=== PATIENT | female | born 1945 ===

== ENCOUNTER 2019-04-08 07:30 | Inpatient (IN) | payer OTHER ==
[2019-04-08] MEDS ORDERED: SYNTHROID150 MCG (09:22)
[2019-04-08] MEDS ORDERED: DILANTIN100 MG PO (09:23)
[2019-04-08] MEDS ORDERED: PHENOBARBI20 MG/5 M1 PO (09:23)
[2019-04-15] MEDS ORDERED: DEMEROL100 MG PO (16:00)
[2019-04-15] MEDS ORDERED: ELIQUIS2.5 MG PO (16:00)
[2019-04-15] MEDS ORDERED: DUI500 PO (16:00)
== END 2019-04-15 19:38 | DRG 470 ==
LOC: SURH 04-13 07:30 → O/R 04-13 08:30 → SURH 04-13 08:30
PROVIDERS: ADMIT Orthopaedic Surgery
PROC: 0MNN0ZZ Release Right Knee Bursa and Ligament, Open Approach (ICD-10-PCS; 2019-04-13)
PROC: 0SRC0J9 Replacement of Right Knee Joint with Synthetic Substitute, Cemented, Open Approach (ICD-10-PCS; principal; 2019-04-13 09:30)
DX: M17.11 Unilateral primary osteoarthritis, right knee (principal); M80.00XA Age-related osteoporosis with current pathological fracture, unspecified site, initial encounter for fracture; G40.802 Other epilepsy, not intractable, without status epilepticus; D62 Acute posthemorrhagic anemia; M85.461 Solitary bone cyst, right tibia and fibula; I10 Essential (primary) hypertension

== ENCOUNTER 2021-05-04 08:13 | Day surgery (SDC) | payer OTHER ==
[~2021-05-04 08:13] MED LIST: DEMEROL100 MG PO; DILANTIN100 MG PO; DUI500 PO; ELIQUIS2.5 MG PO; PHENOBARBI20 MG/5 M1 PO; SYNTHROID150 MCG
== END 2021-05-04 14:00 | disposition home or self-care (01) ==
LOC: AMB-ENDOS 08:13
PROVIDERS: ATTEND Colon & Rectal Surgery
DX: D12.2 Benign neoplasm of ascending colon (principal); K64.2 Third degree hemorrhoids